=== PATIENT | female | born 1960 ===

== ENCOUNTER 2023-12-28 17:15 | Outpatient (CLI) | payer BC, SELFPAY ==
--- OUTSIDE RECORDS SUMMARY | 2024-01-06 04:07 | XMS_ITS | Data Portability ---
Author Name Unknown Address [address] [place] [address] Phone [phone] Organization [facility], [facility] Address [address] [place] [address] Care Team Providers Care Filler Shredder Name Role Phone [facility] Primary Care Provider BRIGETTE JAMES Primary Care Provider Assessment No assessment recorded. Plan of Treatment Reminders Order Date Submit Date Provider Last Modified By Organization Details Last Modified Time Details Appointments None recorded. Lab PTH (parathyroi d hormone), intact, serum or plasma 2021 [facility], [address], [place] [address], [place], [address], 10:22:40 stone risk analysis panel 2021 022 [facility], [address], [place] [address], [place], [address], 13:12:55 stone risk analysis panel 2021 022 [facility], [address], [place] [address], [place], [address], 13:12:50 unlisted lab - stone blood 2021 022 [facility], [address], [address], [place], [address], 2 18:00:57 Referral None recorded. Procedures None recorded. Surgeries None recorded. Imaging CT, abdomen + pelvis, w/o contrast - PLEASE CONTACT PATIENT TO SCHEDULE 2021 023 [email or web address] [facility], [address], [place], [address], 3 08:29:06 CT, abdomen + pelvis, w/o contrast - stone protocol. Evaluate for right ureteral stone. 2021 022 [email or web address] [facility], [address], [place], [address], 2 08:45:40 Medication Orders diclofenac potassium 50 mg tablet 2021 022 [id number] [facility] [address], [address] [place], [address], 2 10:49:16 tamsulosin 0.4 mg capsule 2021 022 [email or web address] [facility] [address], [address] [place], [address], 2 10:49:16 Patient TargetsNo targets recorded. Patient Instructions Encounter Date Encounter Id Patient Instructions Last Modified By Organization Details Last Modified Time 02/18/2022 [id number] kidney stone: ca re instructions Not available 02/19/2022 09:31:29 learning about d iet for kidney stone prevention Not available 02/19/2022 09:31:29 02/17/2022 [id number] kidney stone: ca re instructions Not available 02/19/2022 09:27:02 learning about d iet for kidney stone prevention Not available 02/19/2022 09:27:02 02/14/2022 [id number] 61 yr old female with chronic history of nephrolithiasis and recent right ureteral 2 mm stone with hydronephrosis. - Creatinine 01/23/22 WNL. - Right flank pain has resolved, pt is not aware of passing stone. Will check non-contrast CT to evaluate for residual right ureteral stone. -Small non-obstructing bilateral kidney stones on CT 01/23/22 (largest 4 mm on left). Pt has previously passed some stones on her own, others have required intervention. Consider annual follow-up with CT. - Diclofenec and tamsulosin ordered at patient request, to start if develops flank pain without fever, chills, dysuria. Pt instructed to see Urology or urgent care if lasting longer than 2 days or if develops any symptoms of infection, uncontrolled or worsening pain. Pt is in agreement with plan. - Pt is interested in specific dietary recommendations. Reports stones have been calcium oxalate. Stone analysis 2015: 80% Calcium phosphate (apatite), 20% Calcium oxalate. Will check stone blood and arrange for 24 hour urine x 2, follow-up with AMALIA Lazcano Not available 02/14/2022 16:36:20 Reason for Referral None Reported. Results Created Date Observation Date Name Description Value Unit Range Abnormal Flag LastModifiedBy Organization Detail LastModifiedTime 02/15/20 22 02/14/2022 STONE BLOOD Na 141.0 mmol/ L 135.0- 145.0 Not Available [facility] [address] [facility] [address], [place], [address], 02/14/2022 18:00:57 02/15/20 22 02/14/2022 STONE BLOOD potassium 4.3 mmol/ L 3.6-5. 0 Not Available [facility] [address] [facility] [address], [place], [address], 02/14/2022 18:00:57 02/15/20 22 02/14/2022 STONE BLOOD chloride 103.0 mmol/ L 101.0- 111.0 Not Available [place] [facility] [address] [facility] [address], [place], [address], 02/14/2022 18:00:57 02/15/20 22 02/14/2022 STONE BLOOD CO2 28.0 mmol/ L 21.0-3 1.0 Not Available [facility] [address] [facility] [address], [place], [address], 02/14/2022 18:00:57 02/15/20 22 02/14/2022 STONE BLOOD aniongap 10.00 0.00-1 6.00 Not Available [facility] [address] [facility] [address], [place], [address], 02/14/2022 18:00:57 02/15/20 22 02/14/2022 STONE BLOOD glu 84.10 mg/dL 70.00- 105.00 Not Available [facility] [address] [facility] [address], [place], [address], 02/14/2022 18:00:57 02/15/20 22 02/14/2022 STONE BLOOD Ca 10.1 mg/dL 8.4-10 .2 Not Available [facility] [address] [place] [address] [address], [place], [address], 02/14/2022 18:00:57 02/15/20 22 02/14/2022 STONE BLOOD mg 2.2 mg/dL 1.7-2. 8 Not Available [facility] [address] [facility] [address], [place], [address], 02/14/2022 18:00:57 02/15/20 22 02/14/2022 STONE BLOOD phosphorus 3.3 mg/dL 2.5-4. 6 Not Available [facility] [address] [facility] [address], [place], [address], 02/14/2022 18:00:57 02/15/20 22 02/14/2022 STONE BLOOD uric acid 5.1 mg/dL 2.6-7. 2 Not Available [facility] [address] [facility] [address], [place], [address], 02/14/2022 18:00:57 02/15/20 22 02/14/2022 STONE BLOOD BUN 10.0 mg/dL 7.0-18 .0 Not Available [facility] [address] [facility] [address], [place], [address], 02/14/2022 18:00:57 02/15/20 22 02/14/2022 STONE BLOOD BUN/creat 14.3 ratio 7.0-17 .0 Not Available [facility] [address] [place] [address] [address], [place], [address], 02/14/2022 18:00:57 02/15/20 22 02/14/2022 STONE BLOOD creatinine 0.7 mg/dL 0.6-1. 3 Not Available [facility] [address] [place] [address] [address], [place], [address], 02/14/2022 18:00:57 02/15/20 22 02/14/2022 STONE BLOOD eGFR >60 mL/mi n_per _1.73 90-120 Not Available [facility] [address] [place] [address] [address], [place], [address], 02/14/2022 18:00:57 02/18/20 22 02/17/2022 UROST ONE 24 volume 1.800 L 0.510- 2.560 Not Available [facility] [address] [place] [address] [address], [place], [address], 02/20/2022 13:12:50 02/18/20 22 02/17/2022 UROST ONE 24 pH 6.10 5.60-7 .10 Not Available [facility] [address] [place] [address] [address], [place], [address], 02/20/2022 13:12:50 02/18/20 22 02/17/2022 UROST ONE 24 U chloride 83.0 mmol/ L Not Available [facility] [address] [place] [address] [address], [place], [address], 02/20/2022 13:12:50 02/18/20 22 02/17/2022 UROST ONE 24 U creatinine 53.0 mg/dL Not Available [facility] [address] [place] [address] [address], [place], [address], 02/20/2022 13:12:50 02/18/20 22 02/17/2022 UROST ONE 24 U magnesium 5.7 mg/dL Not Available [facility] [address] [place] [address] [address], [place], [address], 02/20/2022 13:12:50 02/18/20 22 02/17/2022 UROST ONE 24 U phosphorus 32.0 mg/dL Not Available [facility] [address] [facility] [address], [place], [address], 02/20/2022 13:12:50 02/18/20 22 02/17/2022 UROST ONE 24 U potassium 20.90 mmol/ L Not Available [facility] [address] [place] [address] [address], [place], [address], 02/20/2022 13:12:50 02/18/20 22 02/17/2022 UROST ONE 24 U protein 4.61 mg/dL Not Available [facility] [address] [place] [address] [address], [place], [address], 02/20/2022 13:12:50 02/18/20 22 02/17/2022 UROST ONE 24 U sodium 86.0 mmol/ L Not Available [facility] [address] [place] [address] [address], [place], [address], 02/20/2022 13:12:50 02/18/20 22 02/17/2022 UROST ONE 24 U uric acid 26.0 mg/dL Not Available [facility] [address] [place] [address] [address], [place], [address], 02/20/2022 13:12:50 02/18/20 22 02/17/2022 UROST ONE 24 24 calcium 223.9 mg/24 _hour s 8.5-27 7.0 Not Available [facility] [address] [place] [address] [address], [place], [address], 02/20/2022 13:12:50 02/18/20 22 02/17/2022 UROST ONE 24 24 chloride 149.40 mmol/ 24_ho urs 28.20- 244.70 Not Available [facility] [address] [place] [address] [address], [place], [address], 02/20/2022 13:12:50 02/18/20 22 02/17/2022 UROST ONE 24 24 citrate 625.05 mg/24 _hrs 287.00 -708.0 0 Not Available [facility] [address] [facility] [address], [place], [address], 02/20/2022 13:12:50 02/18/20 22 02/17/2022 UROST ONE 24 24 magnesium 102.42 mg/24 _hour s 43.00- 246.00 Not Available [facility] [address] [place] [address] [address], [place], [address], 02/20/2022 13:12:50 02/18/20 22 02/17/2022 UROST ONE 24 24 oxalate 22.68 mg/24 _hrs 4.00-3 1.00 Not Available [facility] [address] [place] [address] [address], [place], [address], 02/20/2022 13:12:50 02/18/20 22 02/17/2022 UROST ONE 24 24 phosphorus 576.00 mg/24 _hour s 127.00 -1318. 00 Not Available [facility] [address] [place] [address] [address], [place], [address], 02/20/2022 13:12:50 02/18/20 22 02/17/2022 UROST ONE 24 24 potassium 37.62 mmol/ 24_ho urs 7.70-9 1.30 Not Available [facility] [address] [place] [address] [address], [place], [address], 02/20/2022 13:12:50 02/18/20 22 02/17/2022 UROST ONE 24 24 protein 82.98 mg/24 _hour s 40.00- 150.00 Not Available [facility] [address] [facility] [address], [place], [address], 02/20/2022 13:12:50 02/18/20 22 02/17/2022 UROST ONE 24 24 sodium 154.80 mmol/ 24_ho urs 26.40- 243.80 Not Available [facility] [address] [place] [address] [address], [place], [address], 02/20/2022 13:12:50 02/18/20 22 02/17/2022 UROST ONE 24 24 uric acid 468.00 mg/24 _hour s 136.00 -763.0 0 Not Available [facility] [address] [place] [address], [place], [address], 02/20/2022 13:12:50 02/18/20 22 02/17/2022 UROST ONE 24 24creatinine 954.00 mg/24 hrs 384.00 -2189. 00 Not Available [facility] [address] [place] [address], [place], [address], 02/20/2022 13:12:50 02/19/20 22 02/18/2022 UROST ONE 24 volume 1.900 L 0.510- 2.560 Not Available [facility] [address] [place] [address] [address], [place], [address], 02/20/2022 13:12:55 02/19/20 22 02/18/2022 UROST ONE 24 pH 6.30 5.60-7 .10 Not Available [facility] [address] [place] [address] [address], [place], [address], 02/20/2022 13:12:55 02/19/20 22 02/18/2022 UROST ONE 24 U chloride 62.0 mmol/ L Not Available [facility] [address] [place] [address], [place], [address], 02/20/2022 13:12:55 02/19/20 22 02/18/2022 UROST ONE 24 U creatinine 51.0 mg/dL Not Available [facility] [address] [facility] [address], [place], [address], 02/20/2022 13:12:55 02/19/20 22 02/18/2022 UROST ONE 24 U magnesium 4.2 mg/dL Not Available [facility] [address] [facility] [address], [place], [address], 02/20/2022 13:12:55 02/19/20 22 02/18/2022 UROST ONE 24 U phosphorus 33.0 mg/dL Not Available [facility] [address] [place] [address] [address], [place], [address], 02/20/2022 13:12:55 02/19/20 22 02/18/2022 UROST ONE 24 U potassium 17.20 mmol/ L Not Available [facility] [address] [facility] [address], [place], [address], 02/20/2022 13:12:55 02/19/20 22 02/18/2022 UROST ONE 24 U protein 4.22 mg/dL Not Available [facility] [address] [facility] [address], [place], [address], 02/20/2022 13:12:55 02/19/20 22 02/18/2022 UROST ONE 24 U sodium 73.0 mmol/ L Not Available [facility] [address] [place] [address] [address], [place], [address], 02/20/2022 13:12:55 02/19/20 22 02/18/2022 UROST ONE 24 U uric acid 28.0 mg/dL Not Available [facility] [address] [place] [address] [address], [place], [address], 02/20/2022 13:12:55 02/19/20 22 02/18/2022 UROST ONE 24 24 calcium 165.1 mg/24 _hour s 8.5-27 7.0 Not Available [facility] [address] [facility] [address], [place], [address], 02/20/2022 13:12:55 02/19/20 22 02/18/2022 UROST ONE 24 24 chloride 117.80 mmol/ 24_ho urs 28.20- 244.70 Not Available [facility] [address] [facility] [address], [place], [address], 02/20/2022 13:12:55 02/19/20 22 02/18/2022 UROST ONE 24 24 citrate 651.21 mg/24 _hrs 287.00 -708.0 0 Not Available [facility] [address] [place] [address] [address], [place], [address], 02/20/2022 13:12:55 02/19/20 22 02/18/2022 UROST ONE 24 24 magnesium 79.99 mg/24 _hour s 43.00- 246.00 Not Available [facility] [address] [facility] [address], [place], [address], 02/20/2022 13:12:55 02/19/20 22 02/18/2022 UROST ONE 24 24 oxalate 23.94 mg/24 _hrs 4.00-3 1.00 Not Available [facility] [address] [place] [address] [address], [place], [address], 02/20/2022 13:12:55 02/19/20 22 02/18/2022 UROST ONE 24 24 phosphorus 627.00 mg/24 _hour s 127.00 -1318. 00 Not Available [facility] [address] [place] [address] [address], [place], [address], 02/20/2022 13:12:55 02/19/20 22 02/18/2022 UROST ONE 24 24 potassium 32.68 mmol/ 24_ho urs 7.70-9 1.30 Not Available [facility] [address] [place] [address], [place], [address], 02/20/2022 13:12:55 02/19/20 22 02/18/2022 UROST ONE 24 24 protein 80.18 mg/24 _hour s 40.00- 150.00 Not Available [facility] [address] [place] [address], [place], [address], 02/20/2022 13:12:55 02/19/20 22 02/18/2022 UROST ONE 24 24 sodium 138.70 mmol/ 24_ho urs 26.40- 243.80 Not Available [facility] [address] [place] [address], [place], [address], 02/20/2022 13:12:55 02/19/20 22 02/18/2022 UROST ONE 24 24 uric acid 532.00 mg/24 _hour s 136.00 -763.0 0 Not Available [facility] [address] [place] [address], [place], [address], 02/20/2022 13:12:55 02/19/20 22 02/18/2022 UROST ONE 24 24creatinine 969.00 mg/24 hrs 384.00 -2189. 00 Not Available [facility] [address] [place] [address], [place], [address], 02/20/2022 13:12:55 03/07/20 22 03/07/2022 PARAT HYROI D HORMO NE INTAC T PTH 34.00 pg/mL 12.00- 88.00 Not Available [facility] [address] [place] [address], [place], [address], 03/08/2022 10:22:40 02/11/20 22 01/23/2022 CT, abdom en + pelvi s, w/o contr ast No observ ation record ed. Not Available 02/11/2022 09:00:35 02/29/20 22 02/25/2022 CT, abdom en + pelvi s, w/o contr ast No observ ation record ed. Not Available 03/01/2022 08:45:40 Result Notes None recorded. Problems Name Status Onset Date Resolution Date Notes Provider Name and Address Organization Details Recorded Time History of calculus of kidney Active Huong farris [facility] 03/07/2022 10:22:04 Problem Notes None recorded. Procedures Surgical History Date Name Laterality Status Provider Name and Address Organization Details Recorded Time 03/07/20 22 Blood Draw/RESEARCH EDITOR/PSA RESULTS completed Kristie farris [facility] 03/07/2022 10:52:59 02/20/20 22 24 Hour Urine Part 1 completed Tanna farris [facility] 02/19/2022 09:30:52 02/20/20 22 24 Hour Urine Part 1 completed Tanna farris [facility] 02/19/2022 09:26:10 02/15/20 22 Blood Draw/RESEARCH EDITOR/PSA RESULTS completed Kristie farris [facility] 02/14/2022 16:21:38 03/23/20 14 Perq nl/pl lithotrp cplx>2cm completed Not Available [facility] 03/05/2022 10:49:12 12/31/19 12 Cystouretero w/stone remove completed Not Available [facility] 03/05/2022 10:49:12 05/11/20 07 Fragmenting of kidney stone completed Not Available Health Note 03/05/2022 10:49:12 Imaging Results Imaging Date Name Status LastModified by Organiz ation Details LastModified Time 01/23/2022 CT, abdomen + pelvis, w/o contrast completed Information not available 02/11/2022 09:00:35 02/25/2022 CT, abdomen + pelvis, w/o contrast completed [email or web address] Information not available 03/01/2022 08:45:40 Procedure Notes None recorded. Medical Equipment None Reported. Allergies Allergen ID Allergen Name Allergen Category Reaction Reaction Severity Criticality Documentation Date Start Date Code Code System Note Provider Name and Address Organization Details Recorded Time 490439 acetamino phen / hydrocodo ne medicatio n Not available Not available Not available 02/09/202080401 2 RxNorm Not Available [facility] 0 23:45:57 699052 acetamino phen / oxycodone medicatio n Not available Not available Not available 02/09/202044444 3 RxNorm Not Available [facility] 0 23:45:57 490389 latex environme nt,medica tion Not available Not available Not available 02/09/2020 72378 91 RxNorm Not Available [facility] 0 23:45:58 613251 indometha debby medicatio n Not available Not available Not available 02/09/2020 5781 RxNorm Not Available [facility] 0 23:45:58 052990 morphine medicatio n Not available Not available Not available 02/09/2020 7052 RxNorm Not Available [facility] 0 23:45:58 Medications Name Sig Start Date Stop Date Status Note LastModified by Organization Details LastModified Time ondansetron HCl 4 mg tablet 03/07 completed Not Available Not Available Not Available tamsulosin 0.4 mg capsule 0.4mg PRN/day active Not Available Not Available No t Available diclofenac potassium 50 mg tablet 50mg prn TID to QID. active Not Available Not Available No t Available methylpredn isolone 4 mg tablets in a dose pack TAKE BY MOUTH DIRECTED ON INSIDE OF PACKAGE 03/07 completed Not Available Not Available Not Available oxycodone 5 mg tablet 03/07 completed Not Available Not Available Not Available Vitals Date Recorded Body weight Body mass index (BMI) Body height Provider Name and Address Organization Details Last Updated DateTime 02/14/2022 82367.53848 08009 g 29.4 kg/m2 170.18 cm Not Available Health Note 02/14/2022 14:57:13 Date Recorded Body height Body mass index (BMI) Body weight Provider Name and Address Organization Details Last Updated DateTime 03/07/2022 170.18 cm 28.2 kg/m2 31514.7236 785470 g Not Available Health Note 03/07/2022 10:20:20 Social History Question Answer Notes LastModified by Organizat ion Details LastModified Time Tobacco Smoking Status Never Smoker Not Available Health Note 03/05/2022 10:49:13 What Is Your Level Of Alcohol Consumption? None [email or web address] Information not available 03/07/2022 What Is Your Level Of Caffeine Consumption? None [email or web address] Information not available 03/05/2022 How Much Tobacco Do You Chew? None [email or web address] Information not available 03/05/2022 Do You Or Have You Ever Used E-cigarettes Or Vape? Never Used Electronic Cigarettes [email or web address] Information not available 03/05/2022 Have You Or Anyone In Your House Tested Positive For COVID-19 In The Past 14 Days? No [email or web address] Information not available 02/10/2022 Have You Or Anyone In Your House Been Exposed To COVID-19 In The Past 14 Days? No [email or web address] Information not available 02/10/2022 Have You Or Anyone In Your Home Experienced Symptoms Of COVID 19 Such As Fever >100.4, Shortness Of Breath, Difficulty Breathing, Or A Cough? No [email or web address] Information not available 02/10/2022 Have You Traveled Outside Of [place] In The Past 30 Days? No [email or web address] Information not available 02/10/2022 Race White Information n ot available 02/10/2020 Preferred Language Welsh Information not available 02/14/2022 Number Of Pregnancies 4 [email or web address] Information not available 02/10/2022 Number Of Vaginal Deliveries 3 [email or web address] Information not available 02/10/2022 Number Of Caesarean Sections 0 [email or web address] Information not available 02/10/2022 Could You Be ? No Information not available 02/14/2022 Marital Status Informati on not available 02/10/2020 What Was The Date Of Your Most Recent Tobacco Screening? 03/07/2022 [email or web address] Information not available 03/05/2022 What Is Your Relationship Status? [email or web address] Information not available 02/10/2022 Are You Sexually Active? Yes [email or web address] Information not available 02/10/2022 Do You Or Have You Ever Used Smokeless Tobacco? Never Used Smokeless Tobacco [email or web address] Information not available 03/05/2022 Do You Use Any Illicit Or Recreational Drugs? No [email or web address] Information not available 03/05/2022 Sex: Female Functional Status None recorded. Mental Status None recorded. Family History Relationship Description Onset Age of this Age Resolved Age Notes Unspecified Relation Family history unknown Notes:Heart disease:Runs in Family Bladder Cancer:Runs in Family Diabetes:Runs in Family Hypertension:Runs in Family Cancer, lung:Runs in Family Cancer, colon:Runs in Family Medical History Condition Response Other N High Blood Pressure N Kidney Stones Y Depression N Sexually Transmitted Infection N Cancer N Bleeding Disorder N Lung Disease N GERD/Acid Reflux N High Cholesterol N Diabetes N Heart Disease N Gynecological History Statement/Question Response If Post Menopausal, Age at Menopause 51 Leaking urine with intercourse N Hormone Therapy N Sexually Active? Y Pain with intercourse N Obstetrics History GPAL:G 0 P 0 0 0 0 Immunizations Vaccine Type Date Status Provider Name and Address Organization Details Recorded Time SARS-COV-2 (COVID-19) vaccine, UNSPECIFIED 11/30/2021 completed Not Available [facility] 03/07/2022 10:20:33 influenza, unspecified formulation 06/01/2021 completed Not Available [facility] 03/07/2022 10:20:33 DT (pediatric) 06/20/2004 completed Veronica [place] null, [facility] 02/14/2022 15:18:12 MMR 02/28/1991 completed Veronica [place] null, [facility] 02/14/2022 15:18:12 DT (pediatric) 02/28/1991 completed Veronica Cedric null, [facility] 02/14/2022 15:18:12 influenza, injectable, quadrivalent, preservative free 06/25/2016 completed Veronica [place] null, [facility] 02/14/2022 15:18:12 Influenza, seasonal, injectable 06/16/2015 completed Veronica [place] null, [facility] 02/14/2022 15:18:12 Hep B, adult 07/25/1992 completed Veronica [place] null, [facility] 02/14/2022 15:18:12 Hep B, adult 02/27/1993 completed Veronica Cedric null, [facility] 02/14/2022 15:18:12 Hep B, adult 10/13/1992 completed Veronica [place]ed[place] null, [facility] 02/14/2022 15:18:12 Tdap 02/18/2014 completed Veronica farris [facility] 02/14/2022 15:18:12 influenza, unspecified formulation 05/02/2021 completed Not Available [facility] 03/07/2022 10:20:33 SARS-COV-2 (COVID-19) vaccine, UNSPECIFIED 01/14/2022 completed Not Available [facility] 03/07/2022 10:20:33 Past Encounters Encounter ID Performer Location Encounter Start Date Encounter Closed Date Diagnosis/Indication Diagnosis SNOMED-CT Code [id number] Rubin PorfirioCLAY galo [facility] [address] [place] [address],[address] [phone] 02/14/2022 14:57:09 02/14/2022 17:19:23 Ureteric stone [id number] Kidney stone [id number] Tanna Lopez [facility] [address] [place] [phone] 02/19/2022 09:06:43 02/20/2022 03:53:58 Kidney stone [id number] Tanna Lopez [facility] [address] [place] [phone] 02/19/2022 09:07:12 02/19/2022 11:22:40 Kidney stone [id number] Shweta Esquivel [facility] [address] [place] [phone] 03/07/2022 10:17:37 03/07/2022 11:45:02 Kidney stone [id number] Health Concerns Section Related Observation LastModified by Organization Detai ls LastModified Time None Recorded Concern Status LastModified by Organization Details LastModified Time None Recorded Advance Directives Directive None Recorded Payers Encounter Date Sequence Insurance Name Policy Number Policy Ortega Covered Member ID Ortega Member ID Guarantor Name 03/07/2022 1 [employer] [employer] 113 Kiera Hurd [id number] Kiera Hurd 02/18/2022 1 [employer] [employer] [place] 113 Kiera Hurd [id number] Kiera Hurd 02/17/2022 1 [employer] [employer] [place] 113 Kiera Hurd [id number] Kiera Hurd 02/14/2022 1 [employer] [employer] [place] 113 Kiera Hurd [id number] Kiera Hurd Notes Date Note Type Note Provider Name and Address Organization Details Recorded Time 02/14/2022 text/html HPI Notes: 61yr old female here for evaluation of kidney stones. CT Abd/pelvis (w/o contrast) 01/23/22: 2 x 2 mm right proximal ureteral stone wth mild hydronephrosis, 1 mm calyceal tip stone right upper pole, 5 calyceal tip stones left kidney (largest 4 mm). Pt reports no right flank or abdominal pain since ED visit. Has not passed obvious stone but stopped straining after a few days. Denies fever, chills, nausea, vomiting, dysuria. Creatinine 01/23/22: 0.60 Hx of numerous kidney stones with interventions per [facility], dating back to 2006. Also reports history of ruptured left kidney 2/2 stone. Pt reports she intermittently gets flank pain, thinks she has passed some stones on her own, starts tamsulosin and diclofenac potassium with onset of symptoms and symptoms typically resolve. Stone Analysis 01/02/2012: 80% Calcium phosphate (apatite) 20% Calcium oxalate Rubin Monroy CNP [id number] [facility],[address], [place], [phone], [facility] 02/14/2022 16:36:45 03/07/2022 text/html HPI Notes: Kiera elizondo is a 61 yo female here for stone risk follow up tone analysis 2014: 80% Calcium phosphate (apatite), 20% Calcium oxalate. CT abdo and pelvis 02/25/2022 without ureteric stone, multiple small stone in the left kidney measuring 1-3 mm, punctate stone in the right kidney states previously negative Parathyroid workup 24 hour urines : both with low volumes at 1.8L and 1.9. otherwise one sample with slight elevation in urine 24 hour ca at223.9. stone blood normal, with high end of normal Ca supplementation:one a day and balance of nature vitamin, in addition to vitamin d Shweta farris, [facility] 03/07/2022 11:28:57 OBGyn Episode No OBEpisode recorded.
--- OUTSIDE RECORDS SUMMARY | 2024-01-06 04:07 | XMS_ITS | Clinical Summary ---
Author Name Unknown Organization [email or web address] [facility] [employer] [facility] Address [place], [place] [address] Care Team Providers Care Research Professor Name Role Phone Elizabeth Mosley MD Primary Care Provider Allergies Active Allergy Reactions Criticality Noted Date Comments Indomethacin Dizziness Low 04/19/2009 Latex Itching Low 05/08/2007 Morphine Muscle Weakness Medium 04/20/2009 Patient experiences severe muscle cramping. Oxycodone-Acetaminophe n Nausea And Vomiting Medium 01/26/2014 Hydrocodone-Acetaminop hen Nausea And Vomiting,Myalgia Medium 02/18/2014 Medications Medication Sig Dispensed Refills Start Date End Date Status ondansetron (ZOFRAN) 4 mg tabletIndications:K aurelia stone on right side Take 1 Tablet (4 mg) by mouth every 6 hours. 30 Tablet 2 Active Additional Information Patient taking differently:4 mg OralQ 8H PRN, Reported on 06/05/2023 acetaminophen (TYLENOL EXTRA STRGTH) 500 mg tabletIndications:S tatus post total left knee replacement Take 2 Tablets (1,000 mg) by mouth every 6 hours if needed for Pain. Max acetaminophen dose: 4000mg in 24 hrs. 100 Tablet 3 Active medication order composer Take by mouth every 6 hours if needed. Tylenol w Caffeine (Tension Headache) Active celecoxib (CeleBREX) 200 mg capsuleIndications: Status post left knee replacement Take 1 Capsule (200 mg) by mouth two times daily with meals. 200 Capsule 3 4 Active ondansetron (ZOFRAN ODT) 4 mg disintegrating tabletIndications:N ausea Place 1-2 Tablets (4-8 mg) on the tongue every 8 hours if needed for Nausea/Vomiting. 16 Tablet 4 Active tamsulosin (FLOMAX) 0.4 mg capsule once daily if needed. 2 12/28/19 24 Discontinue d(*Med complete/Re gimen complete/Le elizabeth of care change) ondansetron (ZOFRAN ODT) 4 mg disintegrating tabletIndications:S tatus post total knee replacement, left,Nausea Place 1 Tablet (4 mg) on the tongue every 8 hours if needed for Nausea/Vomiting. 20 Tablet 3 12/28/19 24 Discontinue d(*Med complete/Re gimen complete/Le elizabeth of care change) tamsulosin (Flomax) 0.4 mg capsuleIndications: Ureterolithiasis Take 1 Capsule (0.4 mg) by mouth once daily after a meal for 7 days. 7 Capsule 4 01/04/20 24 ketorolac (TORADOL) 10 mg tabletIndications:N ephrolithiasis Take 1 Tablet (10 mg) by mouth every 6 hours if needed for Pain for up to 5 days. Maximum of 40 mg in 24 hours. 20 Tablet 4 01/03/20 24 Active Problems Problem Noted Date Diagnosed Date S/p Left total knee arthropl asty DOS: 06/09/2023 with José Carrillo MD 06/13/2023 Primary osteoarthritis of left knee 03/13/2023 Primary osteoarthritis of right knee 03/13/2023 Kidney stone 03/24/2014 Abnormal TSH 01/26/2014 Overweight (BMI 25.0-29.9) 01/26/2014 Perimenopausal 01/26/2014 Nephrolithiasis 04/20/2009 Resolved Problems Problem Noted Date Diagnosed Date Resolved Date Kidney stone on left side 01/01/2012 Ureteric colic 04/20/2009 12/29/2023 SVT (supraventricular tachycardia) 04/20/2009 01/26/2014 Dyslipidemia 04/20/2009 01/26/2014 Encounters Date Type Department Care Team Description 12/29/2023 4:20 PM CDT Telemedicine [facility] [address] [place] [address] Elizabeth Mosley MD Hospital F/U (Urgent Care, [facility], emergency room for kidney stones); Telehealth 12/29/2023 Travel 12/28/2023 6:15 PM CDT - 12/28/2023 9:34 PM CDT Emergency [facility] [address] [place] [address] [place] [address] Adwoa Addison MD Ureterolithiasis (Primary Dx); Nausea Discharge Disposition: Home Self Care 12/28/2023 8:45 AM CDT Office Visit [facility] Urgent Care [facility] [id number] [place] [address] [phone] Flank Pain (right) 12/28/2023 8:37 AM CDT - 12/28/2023 10:00 AM CDT Emergency [facility] - [address] [address] Maria T Vera PA Ureterolithiasis (Primary Dx); Kidney stone; Flank pain; Hematuria, unspecified type; Elevated blood pressure reading Discharge Disposition: Home Self Care 12/28/2023 Travel 11/25/2023 4:20 PM CDT Office Visit [facility] [address] [place] [address] Elizabeth Mosley MD Medication Management (Refills of celebrex) 11/25/2023 Travel 11/22/2023 Travel 11/16/2023 Refill [facility] - [place] [address] [facility] [address] [place] [address] Monisha Mo PA Refill Request (Celecoxib) 10/30/2023 8:30 AM [employer] - 10/30/2023 11:59 PM [employer] Hospital Encounter [facility] [place] [id number] [place] [address] José Carrillo MD Martinez, Nathan M, PT 10/30/2023 Travel 10/21/2023 3:30 PM [employer] Ancillary Procedure [facility] [place] [address] [place] [phone] 10/21/2023 3:15 PM [employer] Office Visit [facility] [place] [address] [place] [phone] Dave Singh MD Knee Pain/problem (S/p Left total knee arthroplasty DOS: 06/09/2023 with José Carrillo MD) 10/21/2023 Travel 10/17/2023 Travel 10/15/2023 4:07 PM [employer] - 10/15/2023 11:59 PM [employer] Hospital Encounter [facility] [place] [address] [facility] [facility] [place] [address] José Carrillo MD Martinez, Nathan M, PT 10/15/2023 Travel 10/09/2023 3:40 PM [employer] Office Visit [facility] [address] [place] [address] Elizabeth Mosley MD Derm Problem (Check spot on nose and right upper thigh) 10/09/2023 Travel from Last 3 Months Immunizations Name Administration Dates Next Due Covid-19 Vaccine (Unspecified) 01/14/2022,2021 DT (Age < 7 years) 06/20/2004,02/28/1991 Hepatitis B (Adult) 02/27/1993,10/13/1992,1991 Influenza Virus, Unspecified 06/01/2021 Influenza, IIV3 (Age >=3 years) 06/16/2015 Influenza, IIV4 06/25/2016 MMR 02/28/1991 Tdap 02/18/2014 Family History Medical History Relation Name Comments Heart Disease Brother 1 HI Heart Disease Brother 2 HI Cancer Father Bladder, lung, skin Cancer-colon Father Heart Disease Father HI Stroke Father Cancer-breast Maternal Aunt Cancer Mother Cervical Other Mother ALS Hypertension Sister 1 Anesthesia Problem No Family History Blood Disease No Family History Clotting disorder No Family History Relation Name Status Comments Brother 1 Brother 2 Alive Father Maternal Aunt Mother Sister 1 Alive Sister 2 Alive Social History Tobacco Use Types Packs/Day Years Used Date Smoking Tobacco: Never Smokeless Tobacco: Never Tobacco Cessation:Counseling Given: No Alcohol Use Standard Drinks/Week Comments No 0 (1 standard drink = 0.6 oz pur e alcohol) Social Connections Answer Date Recorded Frequency of Communication with Friends and Fami ly 0 05/19/2023 Financial Resource Strain Answer Date R ecorded Difficulty of Paying Living Expenses 3 05/19/2023 Difficulty of Paying Living Expenses Not on file 05/19/2023 Food Insecurity Answer Date Recorded Worried About Running Out of Food in the Last Ye ar 1 05/19/2023 Transportation Needs Answer Date Record ed Lack of Transportation (Medical) 1 05/19/2023 Housing Stability Answer Date Recorded Unable to Pay for Housing in the Last Year 1 05/19/2023 Sex and Gender Information Value Date Recorded Sex Assigned at Not on file Gender Identity Not on file Sexual Orientation Not on file Obstetrics History Para Term AB IAB SAB Ectopic Multiple Livin g Live Births 4 3 3 1 3 Date Outcome GA Total Labor Labor/2nd/3rd Weight Sex Delivery Anes PTL Delaney A1 A5 Name Cl in 06/24 Term F VAGINAL DESTINY Bryar peri 02/15 Term F VAGINAL DESTINY Fayel an 07/12 AB 09/08 Term M VAGINAL DESTINY Rosie son Last Filed Vital Signs Vital Sign Reading Time Taken Comments Blood Pressure 131/61 12/28/2023 9:26 PM CDT Pulse 77 12/28/2023 9:26 PM CDT Temperature 36.4 ??C (97.6 ??F) 12/28/2023 6:23 PM CD T Respiratory Rate 16 12/28/2023 9:26 PM CDT Oxygen Saturation 99% 12/28/2023 9:26 PM CDT Inhaled Oxygen Concentration - - Weight 80.7 kg (178 lb) 12/28/2023 6:23 PM CDT Height 170.2 cm (5' 7) 12/28/2023 6:23 PM CDT Body Mass Index 27.88 12/28/2023 6:23 PM CDT Plan of Treatment Upcoming Encounters Date Type Department Care Team (Late st Contact Info) Description 01/27/2024 9:00 AM CDT Office [place] [facility] [address] [place] [address] Cristy Davenport MD [address] [place], [place] [phone] 06/15/2024 9:00 AM CDT Office Visit [facility] Orthoped[facility] [address] [place] [phone] Dave Singh MD [address] [place] [address] Health Maintenance Due Date Last Done Comments HIV for age 15-65 1976 Colonoscopy through age 75 2006 Mammogram for age 45-75 2006 Zoster (shingles) series for age 50+ (1 of 2) 11/30/2011 Depression screening for age 12+ 09/13/2016 09/13/2015 Pap test for age 21-65 01/26/2017 01/26/2014 Lipids for age 45-75 01/26/2019 01/26/2014 COVID-19 vaccine series (2022- season) 2023 01/14/2022, 11/30/2021 Tetanus booster 02/19/2024 02/18/2014 Influenza for age 50-64 05/02/2024 06/01/20, 06/25/2016, 06/16/2015 BMI (ht and wt on same day) for age 18+ 08/06/2024 08/06/2023, 05/19/2023, 05/28/2022, Additional history exists Hepatitis C screening for age 18-79 Completed 01/26/2014 Tdap Completed 02/18/2014 Pneumococcal series for age 6-64 Aged Out No longer eligible based on patient's age to complete this topic Medical Devices Implanted Type Area Vice President Investor Relations Device Identifier Shelf Expiration Date Model / Serial / Lot Fem Lt 3 Triathlon Beaded W/Je - [id number] Implanted:Qty: 1 on 06/09/2023 by José Carrillo MD at [facility] Left: Knee [employer] 04/30/2028 [id number] / / [id number] Baseplate Tib Univ Sz 3 Triathlon Keeled Ingrowth Pors Tritan - [id number] Implanted:Qty: 1 on 06/09/2023 by José Carrillo MD at [facility] Left: Knee [employer] 04/16/2028 [id number] / / [id number] Insert Tib Sz 3 13mm Knee X3 Condylar Stabilizing Triathlon - [id number] Implanted:Qty: 1 on 06/09/2023 by José Carrillo MD at [facility] Left: Knee [employer] 04/15/2028 [id number] / / [id number] Procedures Procedure Name Priority Date/Time Associated Diagnosis Comments CT ABDOMEN PELVIS STONE PROTOCOL WO STAT 12/28/2023 8:02 PM CDT URINALYSIS MICROSCOPIC STAT 12/28/2023 7:56 PM CDT UA W/ SEDIMENT EXAM REFLEXED PER CRITERIA STAT 12/28/2023 7:[address] ABDOMEN PELVIS STONE PROTOCOL WO STAT 12/28/2023 9:10 AM CDT CBC WITH AUTO DIFFERENTIAL STAT 12/28/2023 9:05 AM CDT BASIC METABOLIC PANEL STAT 12/28/2023 9:05 AM CDT CBC WITH AUTO DIFFERENTIAL STAT 12/28/2023 9:05 AM CDT URINALYSIS MICROSCOPIC STAT 12/28/2023 8:52 AM CDT UA W/ SEDIMENT EXAM REFLEXED PER CRITERIA STAT 12/28/2023 8:52 AM CDT CREATININE Routine 11/25/2023 4:40 PM CDT Status post left knee replacement XR KNEE WB 2 VIEWS BILATERAL AND 1 VIEW LEFT Routine 10/21/2023 3:14 PM [employer]ER Status post total left knee replacement [employer] THIN PREP PAP SCREEN IMAGED Routine 01/26/2014 11:38 AM CDT Pap smear for cervical cancer screening ANTI HCV Routine 01/26/2014 10:31 AM CDT Need for hepatitis C screening test LIPID PANEL W REFLEX MEASURED LDL Routine 01/26/2014 10:31 AM CDT Lipid screening from Last 3 Months or Most Recently Relevant to Health Maintenance Results * CT ABDOMEN PELVIS STONE PROTOCOL WO (12/28/2023 8:02 PM CDT) Only the most recent of2 resultswithin the time period is included. Anatomical Region Laterality Modality Abdomen, Pelvis, AORTA, LIVER, SPLEEN Computed Tomography 12/28/2023 8:02 PM CDT Impressions 12/28/2023 8:13 PM CDT 1. ??3 mm obstructing right UVJ calculus, with slight interval decrease in right-sided hydronephrosis. Narrative 12/28/2023 8:13 PM CDT For Patients: As a result of the Century Cures Act, medical imaging exams and procedure reports are released immediately into your electronic medical record. You may view this report before your referring provider. If you have questions, please contact your health care provider. EXAM: CT ABDOMEN PELVIS STONE PROTOCOL WO LOCATION: [facility] DATE: 12/28/2023 INDICATION: Flank pain, kidney stone suspected COMPARISON: 12/28/2023 at 1001 hours. TECHNIQUE: CT scan of the abdomen and pelvis was performed without oral or IV contrast. Multiplanar reformats were obtained. Dose reduction techniques were used. CONTRAST: None. FINDINGS: LOWER CHEST: Linear scarring in the lingula. HEPATOBILIARY: No biliary dilatation PANCREAS: Unremarkable SPLEEN: Unremarkable ADRENAL GLANDS: Unremarkable KIDNEY/BLADDER: Tiny bilateral nephrolithiasis, largest in the left lower pole reaching to 3 mm. Moderate right hydronephrosis persists. 3 mm calculus is identified at the right UVJ, protruding into the bladder base, unchanged in position. Right-sided hydronephrosis has slightly decreased in interval. No perinephric collections. BOWEL: Colonic diverticulosis. LYMPH NODES: No significant retroperitoneal adenopathy VASCULATURE: No abdominal aortic aneurysm PELVIC ORGANS: No free fluid MUSCULOSKELETAL: No acute bony abnormalities. Small fat-containing umbilical hernia. Procedure Note Duncan Soto MD - 12/28/2023 For Patients: As a result of the Cures Act, medical imagingexams and procedure reports are released immediately into your electronicmedical record. You may view this report before your referring provider.If you have questions, please contact your health care provider. EXAM: CT ABDOMEN PELVIS STONE PROTOCOL WO LOCATION: [facility] DATE: 12/28/2023 INDICATION: Flank pain, kidney stone suspected COMPARISON: 12/28/2023 at 1001 hours. TECHNIQUE: CT scan of the abdomen and pelvis was performed without oral orIV contrast. Multiplanar reformats were obtained. Dose reductiontechniques were used. CONTRAST: None. FINDINGS: LOWER CHEST: Linear scarring in the lingula. HEPATOBILIARY: No biliary dilatation PANCREAS: Unremarkable SPLEEN: Unremarkable ADRENAL GLANDS: Unremarkable KIDNEY/BLADDER: Tiny bilateral nephrolithiasis, largest in the left lowerpole reaching to 3 mm. Moderate right hydronephrosis persists. 3 mmcalculus is identified at the right UVJ, protruding into the bladder base,unchanged in position. Right- sided hydronephrosis has slightly decreasedin interval. No perinephric collections. BOWEL: Colonic diverticulosis. LYMPH NODES: No significant retroperitoneal adenopathy VASCULATURE: No abdominal aortic aneurysm PELVIC ORGANS: No free fluid MUSCULOSKELETAL: No acute bony abnormalities. Small fat-containingumbilical hernia. IMPRESSION: 1. 3 mm obstructing right UVJ calculus, with slight interval decrease inright- sided hydronephrosis. Adwoa Addison MD CT * (ABNORMAL) URINALYSIS MICROSCOPIC (12/28/2023 7:56 PM CDT) Only the most recent of2 resultswithin the time period is included. RBC 26-50(A) 0-2, None Seen /HPF 12/28/2023 8:14 PM CDT [facility] WBC 0-2 0-2, 3-5, None Seen /HPF 12/28/2023 8:14 PM CDT [facility] BACTERIA None Seen None Seen, Rare, Few Bacteria/ HPF 12/28/2023 8:14 PM CDT [facility] EPITHELIAL CELLS None Seen None Seen, Few Epi/HPF 12/28/2023 8:14 PM CDT [facility] HYALINE CASTS 0-2 0-2, 3-5 /LPF 12/28/2023 8:14 PM CDT [facility] Urine URINE SPECIMEN / Unknown Non-Blood / Unknown 12/28/2023 7:56 PM CDT 12/28/2023 8:02 PM CDT Adwoa Addison MD URINE [facility] [employer] INTERNAL ZIP [phone] [place] [address] * (ABNORMAL) UA W/ SEDIMENT EXAM REFLEXED PER CRITERIA (12/28/2023 7:56 PM CDT) Only the most recent of2 resultswithin the time period is included. COLOR Yellow Yellow Color 12/28/2023 8:10 PM T [facility] CLARITY Clear Clear Clarity 12/28/2023 8:10 PM T [facility] SPECIFIC GRAVITY,URINE 1.015 1.010, 1.015, 1.020, 1.025 12/28/2023 8:10 PM T [facility] PH,URINE 7.0 6.0, 7.0, 8.0, 5.5, 6.5, 7.5, 8.5 12/28/2023 8:10 PM T [facility] UROBILINOGEN, QUALITATIVE Normal Normal EU/dl 12/28/2023 8:10 PM T [facility] PROTEIN, URINE Negative Negative mg/dL 12/28/2023 8:10 PM T [facility] GLUCOSE, URINE Negative Negative mg/dL 12/28/2023 8:10 PM T [facility] KETONES,URINE Trace(A) Negative mg/dL 12/28/2023 8:10 PM T [facility] BILIRUBIN,URI NE Negative Negative 12/28/2023 8:10 PM T [facility] OCCULT BLOOD,URINE Moderate(A) Negative 12/28/2023 8:10 PM T [facility] NITRITE Negative Negative 12/28/2023 8:10 PM CDT [facility] LEUKOCYTE ESTERASE Negative Negative 12/28/2023 8:10 PM CDT [facility] Urine URINE SPECIMEN / Unknown Non-Blood / Unknown 12/28/2023 7:56 PM CDT 12/28/2023 8:02 PM CDT Adwoa Addison MD URINE [facility] [employer] [place] [place] [address] * (ABNORMAL) CBC WITH AUTO DIFFERENTIAL (12/28/2023 9:05 AM CDT) WHITE BLOOD COUNT 10.7(H) 4.6 - 10.2 thou/cu mm 12/28/2023 9:22 AM CDT [facility] RED BLOOD COUNT 4.40 4.04 - 6.13 mil/cu mm 12/28/2023 9:22 AM CDT [facility] HEMOGLOBIN 14.6 12.2 - 18.1 g/dL 12/28/2023 9:22 AM CDT [facility] HEMATOCRIT 43.5 37.7 - 53.7 % 12/28/2023 9:22 AM CDT [facility] MCV 99(H) 80 - 97 fL 12/28/2023 9:22 AM CDT [facility] MCH 33.2(H) 27.0 - 31.2 pg 12/28/2023 9:22 AM CDT [facility] MCHC 33.6 31.8 - 35.4 g/dL 12/28/2023 9:22 AM CDT [facility] RDW 13.5 11.6 - 14.8 % 12/28/2023 9:22 AM CDT [facility] PLATELET COUNT 264 142 - 424 thou/cu mm 12/28/2023 9:22 AM CDT [facility] MPV 9.2 6.5 - 11.0 fL 12/28/2023 9:22 AM CDT [facility] % NEUT 84.7(H) 37.0 - 80.0 % 12/28/2023 9:22 AM CDT [facility] % LYMPH 10.7 10.0 - 50.0 % 12/28/2023 9:22 AM CDT [facility] % MONO 3.9 <=12.0 % 12/28/2023 9:22 AM CDT [facility] % EOS 0.5 <=7.0 % 12/28/2023 9:22 AM CDT [facility] % BASO 0.2 <=2.5 % 12/28/2023 9:22 AM CDT [facility] ABSOLUTE NEUTROPHILS 9.1(H) 2.0 - 6.9 thou/cu mm 12/28/2023 9:22 AM CDT [facility] ABSOLUTE LYMPHOCYTES 1.1 0.6 - 3.4 thou/cu mm 12/28/2023 9:22 AM CDT [facility] ABSOLUTE MONOCYTES 0.4 <=0.9 thou/cu mm 12/28/2023 9:22 AM CDT [facility] ABSOLUTE EOSINOPHILS 0.1 <=0.7 thou/cu mm 12/28/2023 9:22 AM CDT [facility] ABSOLUTE BASOPHILS 0.0 <=0.3 thou/cu mm 12/28/2023 9:22 AM CDT [facility] Blood BLOOD SPECIMEN / Unknown Non-Lab Venipuncture / Unknown 12/28/2023 9:05 AM CDT 12/28/2023 9:05 AM CDT Maria T ERWIN HEMATOLOGY Performing Organization Address City/State/[facility] Co de Phone Number [facility] [address] [place] [address] * (ABNORMAL) BASIC METABOLIC PANEL (12/28/2023 9:05 AM CDT) SODIUM 139 137 - 145 mmol/L 12/28/2023 9:28 AM CDT [facility] POTASSIUM 3.8 3.5 - 5.1 mmol/L 12/28/2023 9:28 AM CDT [facility] CHLORIDE 108(H) 98 - 107 mmol/L 12/28/2023 9:28 AM CDT [facility] CO2,TOTAL 23 22 - 30 mmol/L 12/28/2023 9:28 AM CDT [facility] ANION GAP 8 8 - 12 12/28/2023 9:28 AM CDT [facility] [place] [facility] GLUCOSE,RANDOM 105 74 - 106 mg/dL 12/28/2023 9:28 AM CDT [facility] [place] [facility] CALCIUM 9.9 8.4 - 10.2 mg/dL 12/28/2023 9:28 AM CDT [facility] BUN 18(H) 7 - 17 mg/dL 12/28/2023 9:28 AM CDT [facility] [place] [facility] CREATININE 0.60 0.52 - 1.04 mg/dL 12/28/2023 9:28 AM CDT [facility] [place] [facility] BUN/CREAT RATIO 30(H) 10 - 20 9:28 AM CDT [facility] [place] [facility] eGFR >90 >90 mL/min/1.7 3m2 12/28/2023 9:28 AM CDT [facility] Comment:As of 2021, eG FR is calculated by the CKD-EPI creatinine equation without race adjustment. eGFR can be influenced by muscle mass, exercise, and diet. The reported eGFR is an estimation only and is only applicable if the renal function is stable. Blood BLOOD SPECIMEN / Unknown Non-Lab Venipuncture / Unknown 12/28/2023 9:05 AM CDT 12/28/2023 9:05 AM CDT Maria T ERWIN CHEMISTRY Performing Organization Address City/State/[facility] Co de Phone Number [facility] [address] [place] [address] * CREATININE (11/25/2023 4:40 PM CDT) Pathologist [facility] eGFR >90 >90 mL/min/1.7 3m2 11/25/2023 10:04 PM CDT [facility] Comment:As of 2021, eG FR is calculated by the CKD-EPI creatinine equation without race adjustment. ??eGFR can be influenced by muscle mass, exercise, and diet. ??The reported eGFR is an estimation only and is only applicable if the renal function is stable. CREATININE 0.64 0.50 - 0.90 mg/dL 11/25/2023 10:04 PM CDT [facility] Blood BLOOD SPECIMEN / Unknown Venipuncture / Unknown 11/25/2023 4:40 PM CDT 11/25/2023 4:40 PM CDT Elizabeth Mosley MD CHEMISTRY [facility] [address] [place] [address], * XR KNEE WB 2 VIEWS BILATERAL AND 1 VIEW LEFT (10/21/2023 3:14 PM [employer]) Anatomical Region Laterality Modality KNEES, KNEE L Digital Radiogra phy Impressions 10/22/2023 5:34 PM [employer] Stable left total knee arthroplasty without complication (DOS: 06/09/2023) Right knee mild/moderate DJD All services were personally performed by Dave Singh MD . ?? Documentation performed by DIETER Hinton, ATC based on my observation of services performed and provider statements to me. Dave Singh MD 10/21/2023 Narrative 10/22/2023 5:34 PM [employer] This radiology exam was performed at [place] and interpreted by Dave Singh MD HISTORY: A 62 y.o. year - old female with history of left TKA (DOS: 06/09/2023) ?? TECHNIQUE Three views of the left knee were obtained today including: weightbearing bilateral AP, lateral and sunrise views. FINDINGS: Left [place] TKA, tibial component in acceptable alignment, femoral component in slight flexed positioning. No change in position as compared to previous films. ??No obvious evidence of loosening. ??Patella is NOT resurfaced. ??Patellar tracking within normal limits. ??No acute fracture or dislocation. ? Right knee: Mild/moderate patellofemoral degenerative changes as evidenced by joint space narrowing and osteophytes Dave Singh MD GENERAL IMAGING * [employer] TH[employer] PREP PAP SCREEN IMAGED (01/26/2014 11:38 AM CDT) CYTOLOGY CYTOPATHOLOGY REPORT [facility] Status: Final Status ?[id number] CLINICAL INFORMATION Last Date of LMP ? :January 03, 2014 Last Pap Date ?:Years Last Pap Result ?:NIL ABN [place]/Bx Past 5 YRS :None Hormone Usage ?:BCP/OCP/Patch/R ing Menstrual Status ? :Regular Periods [place]/Bx done today ? :No Additional Information :None given HPV Request ?:HPV if ASCUS SPECIMEN SOURCE ?:Cervical/vagina l ThinPrep Vial, screening SPECIMEN ADEQUACY ?:Satisfactory for evaluation Endocervical component ? present. INTERPRETATION/RES ULT Negative for intraepithelial lesion or malignancy (NIL) Cytology 1st Screener ??:kek Signed by ?:dejuan This specimen was screened by the FDA approved ThinPrep Imaging System and manually reviewed. NOTE: ??The Pap test is a screening technique, not a diagnostic procedure. ??It is used ??primarily to screen for squamous cancers and precursor lesions. ??Published studies have shown that it is subject to both false negative and false positive results. ??The pap test should not be used as the sole means to diagnose or exclude pre-malignant and malignant lesions. COLLECTED:01/26/14 ? ACCESSIONED: ??01/27/14 ?? SIGNED: ??02/01/14 [facility] [place] CODE NIL [facility] Tissue specimen (specimen) (Cervical/Vagina l) 01/26/2014 11:38 AM CDT 01/26/2014 11:37 AM CDT Elizabeth Mosley MD PATHOLOGY/CYTOL OGY [facility] INTERNAL ZIP [id number] [place], [place] [id number] * LIPID PANEL W REFLEX MEASURED LDL (01/26/2014 10:31 AM CDT) CHOLESTEROL,TOTAL 190 100 - 199 mg/dL 01/26/2014 5:10 PM CDT [facility] TRIGLYCERIDES 112 <150 mg/dL 01/26/2014 5:10 PM CDT [facility] HDL CHOLESTEROL 59 >40 mg/dL 4 5:10 PM CDT [facility] NON-HDL CHOLESTEROL 131 <145 mg/dl 01/26/2014 5:10 PM CDT [facility] CHOL/HDL RATIO 3.22 <4.50 01/26/2014 5:10 PM CDT [facility] LDL CHOLESTEROL 109 <=130 mg/dL 01/26/2014 5:10 PM CDT [facility] PATIENT STATUS FASTING 01/26/2014 5:10 PM CDT [facility] Blood specimen (specimen) BLOOD SPECIMEN / Unknown Venipuncture / Unknown 01/26/2014 10:31 AM CDT 01/26/2014 10:31 AM CDT Elizabeth Mosley MD CHEMISTRY [facility] [address] [place] [address], * ANTI HCV (01/26/2014 10:31 AM CDT) HEPATITIS C ANTIBODY Non-Reacti ve Non-Reacti ve 01/26/2014 5:31 PM CDT [facility] Blood specimen (specimen) BLOOD SPECIMEN / Unknown Venipuncture / Unknown 01/26/2014 10:31 AM CDT 01/26/2014 10:31 AM CDT Narrative [facility] - 01/26/2014 5:31 PM CDT Antibodies to HCV not detected; does not exclude the possibility of exposure to HCV. Elizabeth Mosley MD [facility] [address] [place] [address], from Last 3 Months or Most Recently Relevant to Health Maintenance Advance Directives * Full Code (Latest Code Status on File) Date Activated Date Inactivated Comments 06/09/2023 8:34 AM 06/09/2023 2:49 PM Question Answer Comments Code Status Discussion: Not Discussed * Full Code Date Activated Date Inactivated Comments 06/09/2023 5:37 AM 06/09/2023 8:34 AM Question Answer Comments Code Status Discussion: Not Discussed * Full Code Date Activated Date Inactivated Comments 03/23/2014 7:36 AM 03/24/2014 4:22 PM * Full Code Date Activated Date Inactivated Comments 03/23/2014 6:26 AM 03/23/2014 7:36 AM * Full Code Date Activated Date Inactivated Comments 12/31/2011 2:17 PM 01/01/2012 3:51 PM Care Teams Research Professor Relationship Specialty [place] [address] [place] [address] PCP - General Family Practice 12/28/23
== END 2023-12-28 17:16 | disposition home or self-care (01) ==
LOC: AMB 01-06 04:04
PROVIDERS: PCP Family Medicine; Visit Provider Student in an Organized Health Care Education/Training Program
DX: N20.0 Calculus of kidney (principal); R10.9 Unspecified abdominal pain
CPT/HCPCS: A0425; A0433